=== PATIENT | female | born 1960 | race Caucasian/White ===

== ENCOUNTER 2019-07-25 15:17 | Inpatient (IN) | payer OTHER ==
[~2019-07-25] VITALS: Ht 157.5 cm; Wt 200.0 kg
[2019-08-03] MEDS ORDERED: AMBIEN10 MG PO (13:23)
[2019-08-03] MEDS ORDERED: CLONAZEPAM2 MG PO (13:23)
[2019-08-03] MEDS ORDERED: LATUDA40 MG PO (13:23)
[2019-08-03] MEDS ORDERED: GABAPENTIN600 MG PO (13:24)
[2019-08-03] MEDS ORDERED: [UNRECOGNIZED DRUG - OTHER] PO (13:24)
[2019-08-03] MEDS ORDERED: BUSPIRONE HCL7.5 MG PO (13:25)
[2019-08-03] MEDS ORDERED: SINGULAIR10 MG PO (13:25)
[2019-08-03] MEDS ORDERED: BREO ELLIPTA 21 EACH IH (13:25)
[2019-08-03] MEDS ORDERED: ULTRAM50 MG PO (13:26)
[2019-08-03] MEDS ORDERED: DEXILANT60 MG (13:26)
[2019-08-03] MEDS ORDERED: BACLOFEN20 MG PO (13:26)
[2019-08-03] MEDS ORDERED: HYDROCHLO PO (13:27)
[2019-08-09] MEDS ORDERED: LIVALO2 MG PO (10:19)
[2019-08-09] MEDS ORDERED: HYDROCHLOROTHIA25 MG PO (10:19)
[2019-08-12] MEDS ORDERED: PERCOCET 5-3251 EACH PO (14:54)
[2019-08-12] MEDS ORDERED: PRILOSEC OTC20 MG PO (14:54)
[2019-08-12] MEDS ORDERED: INTESTINEX680 M1 PO (14:54)
== END 2019-08-12 15:31 | disposition home or self-care (01) | DRG 333 ==
LOC: SURG 08-09 05:25 → O/R 08-09 05:25 → SURG 08-09 10:15
PROVIDERS: ADMIT Surgery
PROC: 4A19X1Z Monitoring of Respiratory Capacity, External Approach (ICD-10-PCS; 2019-08-09)
PROC: 3E0F7GC Introduction of Other Therapeutic Substance into Respiratory Tract, Via Natural or Artificial Opening (ICD-10-PCS; 2019-08-09)
PROC: 0DBP4ZZ Excision of Rectum, Percutaneous Endoscopic Approach (ICD-10-PCS; principal; 2019-08-09 10:15)
DX: K57.20 Diverticulitis of large intestine with perforation and abscess without bleeding (principal); N32.1 Vesicointestinal fistula; I10 Essential (primary) hypertension